=== PATIENT | female | born 1935 | race African-American/Black ===

== ENCOUNTER 2020-01-30 15:59 | Inpatient (IN) | payer MEDICARE, MEDICAID ==
[~2020-01-30] VITALS: Ht 162.6 cm; Wt 85.7 kg
[2020-01-30] MEDS ORDERED: ACETAMINOPHEN 325MG TABLET PO STA (17:18)
[2020-01-30 17:41] LABS: CHLORIDE 108 mEq/L (98-107)
[2020-01-30 17:45] LABS: INR 3.4
[2020-01-30 17:50] LABS: BASOPHILS % 0.5 % (0.0-2.0); EOSINOPHILS % 1.4 % (0.0-5.0); HEMOGLOBIN. 9.6 g/dL (12.0-16.0); LYMPHOCYTES % 10.5 % (20.0-50.0); MEAN CORPUSCULAR HEMOGLOBIN 25.2 pg (28.0-32.0); MEAN PLATELET VOLUME 7.6 fl (7.4-10.4); MONOCYTES % 8.8 % (2.0-8.0); NEUTROPHILS % 78.8 % (40.0-76.0); PLATELET 304 x1000/uL (130-400); RED CELL DISTRIBUTION WIDTH 15.5 % (11.6-14.6)
[2020-01-30] MEDS ORDERED: ONDANSETRON HCL 4MG/2ML INJ IV PRN (19:30)
[2020-01-30] MEDS ORDERED: FUROSEMIDE 20MG/2ML VIAL IVP NR (19:30)
[2020-01-30] MEDS ORDERED: CEFTRIAXONE 1 G PREMIX 50 ML IV SCH (19:45)
[2020-01-30] MEDS: AMLODIPINE 10MG TABLET PO SCH (20:39)
[2020-01-30] MEDS: AZITHROMYCIN 500 MG TABLET PO SCH (20:40)
[2020-01-30] MEDS: SODIUM BICARBONATE 50 MEQ in SODIUM CHLORIDE 0.45% 1,000 ML IV SCH (21:46)
[2020-01-31 05:03] LABS: PHOSPHORUS 4.8 mg/dL (2.5-4.9)
[2020-01-31 05:54] LABS: BASOPHILS % 0.5 % (0.0-2.0); EOSINOPHILS % 1.9 % (0.0-5.0); HEMATOCRIT. 30.5 % (36.0-48.0); LYMPHOCYTES % 12.9 % (20.0-50.0); MEAN CORPUSCULAR HEMOGLOBIN 25.5 pg (28.0-32.0); MEAN PLATELET VOLUME 7.5 fl (7.4-10.4); MONOCYTES % 8.6 % (2.0-8.0); NEUTROPHILS % 76.1 % (40.0-76.0); PLATELET 361 x1000/uL (130-400); RED BLOOD CELL COUNT 3.91 mill/uL (4.2-5.4); RED CELL DISTRIBUTION WIDTH 15.5 % (11.6-14.6)
[2020-01-31 07:02] LABS: INR 3.3; PROTHROMBIN TIME 33.1 sec (9.6-11.0)
[2020-01-31] MEDS ORDERED: AMLODIPINE 5MG TABLET ONE (09:17)
[2020-01-31] MEDS ORDERED: AZITHROMYCIN 500 MG TABLET ONE (09:18)
[2020-01-31] MEDS: AZITHROMYCIN 500 MG TABLET PO SCH (09:21)
[2020-01-31] MEDS: AMLODIPINE 10MG TABLET PO SCH (09:21)
[2020-01-31 13:06] LABS: HEPATITIS B SURFACE AB 7.5 mIU/mL
[2020-01-31 13:16] LABS: HEPATITIS B SURFACE ANTIGEN NEGATIVE
[2020-01-31 15:41] VITALS: BP 117/94
[2020-01-31 17:55] VITALS: BP 145/85
[2020-01-31 20:00] VITALS: BP 119/83
[2020-01-31 22:00] VITALS: BP 112/38
[2020-02-01] VITALS (12 sets, daily range): BP systolic 114–160; BP diastolic 50–87
[2020-02-01] MEDS ORDERED: DEXTROSE 50% WATER 50ML SYRINGE IV PRN (00:15)
[2020-02-01] MEDS: CEFTRIAXONE 1,000 MG in DEXTROSE 5% WATER 50 ML IV SCH ×2 (03:09→20:57)
[2020-02-01] MEDS: BLOOD SUGAR DIAGNOSTIC STRIP TEST SCH ×4 (05:59→21:09)
[2020-02-01 06:38] LABS: BASOPHILS % 0.6 % (0.0-2.0); EOSINOPHILS % 0.9 % (0.0-5.0); HEMATOCRIT. 24.4 % (36.0-48.0); HEMOGLOBIN. 8.1 g/dL (12.0-16.0); LYMPHOCYTES % 10.6 % (20.0-50.0); MEAN CORPUSCULAR HEMOGLOBIN 25.5 pg (28.0-32.0); MEAN PLATELET VOLUME 7.2 fl (7.4-10.4); MONOCYTES % 9.3 % (2.0-8.0); NEUTROPHILS % 78.6 % (40.0-76.0); PLATELET 334 x1000/uL (130-400); RED BLOOD CELL COUNT 3.17 mill/uL (4.2-5.4); RED CELL DISTRIBUTION WIDTH 15.2 % (11.6-14.6)
[2020-02-01 06:46] LABS: INR 3.2; PROTHROMBIN TIME 31.8 sec (9.6-11.0)
[2020-02-01] MEDS: INSULIN LISPRO 100 UNITS/ML SUBCUT SCH ×4 (07:20→21:25)
[2020-02-01 08:09] LABS: *CREATININE RANDOM URINE 102.1 mg/dL (Not Estab.); MICROALBUMIN RANDOM URINE 286.8 ug/mL (Not Estab.)
[2020-02-01] MEDS: AMLODIPINE 10MG TABLET PO SCH (08:20)
[2020-02-01] MEDS: AZITHROMYCIN 500 MG TABLET PO SCH (08:22)
[2020-02-01] MEDS: ACETAMINOPHEN 325MG TABLET PO PRN (08:55)
[2020-02-01 17:38] LABS: CLARITY URINE CLEAR (CLEAR); COLOR URINE YELLOW (YELLOW); KETONES URINE NEGATIVE (NEGATIVE); LEUKOCYTE ESTERASE URINE NEGATIVE (NEGATIVE); NITRITE URINE NEGATIVE (NEGATIVE); OCCULT BLOOD URINE NEGATIVE (NEGATIVE); PROTEIN URINE 2+ (NEGATIVE); SPECIFIC GRAVITY URINE 1.016 (1.005-1.030); UROBILINOGEN URINE 0.2 E.U./dL (0.2-1.0)
[2020-02-01] MEDS: IRON SUCROSE COMPLEX 100 MG/5 ML ML IV SCH (17:56)
[2020-02-01] MEDS: SODIUM BICARBONATE 50 MEQ in SODIUM CHLORIDE 0.45% 1,000 ML IV SCH (22:01)
[2020-02-02] VITALS (13 sets, daily range): BP systolic 125–176; BP diastolic 49–75
[2020-02-02] MEDS: BLOOD SUGAR DIAGNOSTIC STRIP TEST SCH ×4 (05:57→20:19)
[2020-02-02 06:44] LABS: INR 3.2; PROTHROMBIN TIME 31.4 sec (9.6-11.0)
[2020-02-02 07:08] LABS: BASOPHILS % 0.8 % (0.0-2.0); HEMATOCRIT. 26.7 % (36.0-48.0); HEMOGLOBIN. 8.8 g/dL (12.0-16.0); LYMPHOCYTES % 13.5 % (20.0-50.0); MEAN CORPUSCULAR HEMOGLOBIN 25.8 pg (28.0-32.0); MEAN CORPUSCULAR VOLUME 78.2 fL (81.0-99.0); MEAN PLATELET VOLUME 7.2 fl (7.4-10.4); MONOCYTES % 8.7 % (2.0-8.0); PLATELET 331 x1000/uL (130-400); RED BLOOD CELL COUNT 3.42 mill/uL (4.2-5.4)
[2020-02-02] MEDS: INSULIN LISPRO 100 UNITS/ML SUBCUT SCH ×4 (07:20→21:06)
[2020-02-02] MEDS: AMLODIPINE 10MG TABLET PO SCH (09:05)
[2020-02-02] MEDS: AZITHROMYCIN 500 MG TABLET PO SCH (09:06)
[2020-02-02] MEDS: CALCIUM ACETATE 667MG CAPSULE PO SCH ×2 (11:42→17:06)
[2020-02-02] MEDS: IRON SUCROSE COMPLEX 100 MG/5 ML ML IV SCH (17:06)
[2020-02-02] MEDS: ACETAMINOPHEN 325MG TABLET PO PRN (20:12)
[2020-02-02] MEDS: CEFTRIAXONE 1,000 MG in DEXTROSE 5% WATER 50 ML IV SCH (20:19)
[2020-02-02] MEDS ORDERED: EPOETIN ALFA 10000UNITS/ML VIAL SUBCUT SCH (21:00)
[2020-02-02] MEDS: SODIUM BICARBONATE 50 MEQ in SODIUM CHLORIDE 0.45% 1,000 ML IV SCH (21:05)
[2020-02-03] VITALS (12 sets, daily range): BP systolic 138–168; BP diastolic 48–97
[2020-02-03] MEDS: BLOOD SUGAR DIAGNOSTIC STRIP TEST SCH ×4 (06:50→21:00)
[2020-02-03 07:14] LABS: BASOPHILS % 0.5 % (0.0-2.0); EOSINOPHILS % 1.4 % (0.0-5.0); HEMATOCRIT. 25.5 % (36.0-48.0); HEMOGLOBIN. 8.5 g/dL (12.0-16.0); LYMPHOCYTES % 11.1 % (20.0-50.0); MEAN CORPUSCULAR HEMOGLOBIN 25.9 pg (28.0-32.0); MEAN CORPUSCULAR VOLUME 77.9 fL (81.0-99.0); MEAN PLATELET VOLUME 6.9 fl (7.4-10.4); PLATELET 350 x1000/uL (130-400); RED BLOOD CELL COUNT 3.28 mill/uL (4.2-5.4)
[2020-02-03] MEDS: INSULIN LISPRO 100 UNITS/ML SUBCUT SCH ×4 (07:20→21:44)
[2020-02-03 07:21] LABS: INR 2.6; PROTHROMBIN TIME 25.9 sec (9.6-11.0)
[2020-02-03] MEDS: AMLODIPINE 10MG TABLET PO SCH (08:09)
[2020-02-03] MEDS: CALCIUM ACETATE 667MG CAPSULE PO SCH ×3 (08:09→17:43)
[2020-02-03] MEDS: AZITHROMYCIN 500 MG TABLET PO SCH (08:10)
[2020-02-03] MEDS: SODIUM BICARBONATE 50 MEQ in SODIUM CHLORIDE 0.45% 1,000 ML IV SCH (09:30)
[2020-02-03] MEDS: IRON SUCROSE COMPLEX 100 MG/5 ML ML IV SCH (17:43)
[2020-02-03] MEDS: CEFTRIAXONE 1,000 MG in DEXTROSE 5% WATER 50 ML IV SCH (21:44)
[2020-02-03] MEDS: ACETAMINOPHEN 325MG TABLET PO PRN (21:45)
[2020-02-03] MEDS: CLONIDINE 0.2MG TABLET PO PRN (23:57)
[2020-02-04] VITALS (12 sets, daily range): BP systolic 140–185; BP diastolic 47–93
[2020-02-04 06:44] LABS: BASOPHILS % 0.5 % (0.0-2.0); EOSINOPHILS % 2.3 % (0.0-5.0); HEMATOCRIT. 25.4 % (36.0-48.0); HEMOGLOBIN. 8.3 g/dL (12.0-16.0); MEAN CORPUSCULAR HEMOGLOBIN 25.7 pg (28.0-32.0); MEAN CORPUSCULAR VOLUME 78.1 fL (81.0-99.0); MEAN PLATELET VOLUME 6.6 fl (7.4-10.4); MONOCYTES % 8.6 % (2.0-8.0); NEUTROPHILS % 74.6 % (40.0-76.0); PLATELET 358 x1000/uL (130-400); RED BLOOD CELL COUNT 3.25 mill/uL (4.2-5.4); RED CELL DISTRIBUTION WIDTH 15.2 % (11.6-14.6)
[2020-02-04 06:49] LABS: PROTHROMBIN TIME 20.7 sec (9.6-11.0)
[2020-02-04] MEDS: BLOOD SUGAR DIAGNOSTIC STRIP TEST SCH ×3 (06:50→17:14)
[2020-02-04] MEDS: INSULIN LISPRO 100 UNITS/ML SUBCUT SCH ×2 (07:20→12:10)
[2020-02-04] MEDS: CALCIUM ACETATE 667MG CAPSULE PO SCH ×3 (08:40→17:11)
[2020-02-04] MEDS: AMLODIPINE 10MG TABLET PO SCH (08:40)
[2020-02-04] MEDS ORDERED: TRAM50TA3 PO (14:12)
[2020-02-04] MEDS ORDERED: CALC667C PO (14:13)
[2020-02-04] MEDS: CLONIDINE 0.2MG TABLET PO PRN (17:11)
[2020-02-04] MEDS ORDERED: WARFARIN SODIUM 4MG TABLET PO SCH (18:00)
[2020-02-04] MEDS ORDERED: EPOETIN ALFA 4000UNITS/ML VIAL SUBCUT SCH (21:00)
== END 2020-02-04 17:50 | disposition home health service (06) | DRG 871 ==
LOC: ER 15:59 → EDBEDREQ 17:53 → EDBEDREQTM 17:53 → EDBEDREQ 17:54 → MICUSO 21:54 → 3WST 01-31 15:39
PROVIDERS: ADMIT Internal Medicine; ATTEND Internal Medicine
DX: A41.9 Sepsis, unspecified organism (principal); E43 Unspecified severe protein-calorie malnutrition; G82.50 Quadriplegia, unspecified; G93.41 Metabolic encephalopathy; N17.9 Acute kidney failure, unspecified; N18.4 Chronic kidney disease, stage 4 (severe); E87.1 Hypo-osmolality and hyponatremia; D68.9 Coagulation defect, unspecified; I69.354 Hemiplegia and hemiparesis following cerebral infarction affecting left non-dominant side; N25.81 Secondary hyperparathyroidism of renal origin; R47.01 Aphasia; M10.9 Gout, unspecified; E87.8 Other disorders of electrolyte and fluid balance, not elsewhere classified; M19.90 Unspecified osteoarthritis, unspecified site; E78.5 Hyperlipidemia, unspecified; E66.9 Obesity, unspecified; Z85.038 Personal history of other malignant neoplasm of large intestine; Z20.828 Contact with and (suspected) exposure to other viral communicable diseases; M21.222 Flexion deformity, left elbow; D50.9 Iron deficiency anemia, unspecified; E11.22 Type 2 diabetes mellitus with diabetic chronic kidney disease; I12.9 Hypertensive chronic kidney disease with stage 1 through stage 4 chronic kidney disease, or unspecified chronic kidney disease; K43.2 Incisional hernia without obstruction or gangrene; Z68.32 Body mass index [BMI] 32.0-32.9, adult; Z90.49 Acquired absence of other specified parts of digestive tract; Z79.01 Long term (current) use of anticoagulants; I69.322 Dysarthria following cerebral infarction; Z74.01 Bed confinement status; D63.8 Anemia in other chronic diseases classified elsewhere
CPT/HCPCS: 36415; 71045; 73560; 73600; 80048; 80053; 81003; 82043; 82570; 82575; 82728; 82962; 83036; 83540; 83550; 83735; 83970; 84100; 84156; 85025; 86705; 86706; 86803; 87340; 93005; 97162; 97166; 99285; J0696; J0885; J1815; J1940; J3490; J7060; U0003-CS

== ENCOUNTER 2021-06-07 18:17 | Emergency (ER) | payer MEDICARE, MEDICAID ==
[~2021-06-07] VITALS: Ht 162.6 cm; Wt 68.0 kg
[~2021-06-07 18:17] MED LIST: CALC667C PO; TRAM50TA3 PO
[2021-06-07] MEDS ORDERED: METHYLPREDNISOLONE SOD SUCC 125 MG/2 ML VIAL IV STA (19:17)
[2021-06-07] MEDS ORDERED: IPRATROPIUM BROMIDE (0.02%) 0.5MG/2.5ML NEB HHN STA (19:17)
[2021-06-07] MEDS ORDERED: ASPIRIN 81MG TABLET PO ONE (19:30)
[2021-06-07 20:12] LABS: BASOPHILS % 0.6 % (0.0-2.0); EOSINOPHILS % 2.3 % (0.0-5.0); HEMATOCRIT. 29.6 % (36.0-48.0); HEMOGLOBIN. 9.5 g/dL (12.0-16.0); MEAN CORPUSCULAR HEMOGLOBIN 25.1 pg (28.0-32.0); MEAN CORPUSCULAR VOLUME 78.1 fL (81.0-99.0); MEAN PLATELET VOLUME 7.7 fl (7.4-10.4); MONOCYTES % 7.5 % (2.0-8.0); NEUTROPHILS % 76.6 % (40.0-76.0); PLATELET 251 x1000/uL (130-400); RED BLOOD CELL COUNT 3.79 mill/uL (4.2-5.4); RED CELL DISTRIBUTION WIDTH 15.7 % (11.6-14.6)
[2021-06-07 20:19] LABS: CHLORIDE 116 mEq/L (98-107)
[2021-06-07] MEDS: ALBUTEROL (0.083%) 2.5MG/3ML NEB HHN SCH ×3 (22:00→22:40)
[2021-06-08 00:03] VITALS: BP 160/75
== END 2021-06-08 00:10 | disposition home or self-care (01) ==
LOC: ER 18:17 → CANBEDREQ 06-08 01:43
DX: J45.901 Unspecified asthma with (acute) exacerbation (principal); E11.22 Type 2 diabetes mellitus with diabetic chronic kidney disease; I12.9 Hypertensive chronic kidney disease with stage 1 through stage 4 chronic kidney disease, or unspecified chronic kidney disease; N18.9 Chronic kidney disease, unspecified; I69.354 Hemiplegia and hemiparesis following cerebral infarction affecting left non-dominant side
CPT/HCPCS: 36415; 71045; 80053; 83880; 84484; 85025; 87426; 93005; 96374; 99285; J2930

== ENCOUNTER 2021-07-23 13:56 | Inpatient (IN) | payer MEDICARE, MEDICAID ==
[~2021-07-23] VITALS: Ht 157.5 cm; Wt 85.7 kg
[2021-07-23] MEDS ORDERED: [UNRECOGNIZED DRUG - OTHER] (14:09)
[2021-07-23] MEDS ORDERED: WARF2.5T83 PO (14:09)
[2021-07-23] MEDS ORDERED: LANTUS (14:09)
[2021-07-23] MEDS ORDERED: METO-385 PO (14:09)
[2021-07-23] MEDS ORDERED: HYDR-4135 PO (14:09)
[2021-07-23] MEDS ORDERED: AMLO10TA80 PO (14:09)
[2021-07-23] MEDS ORDERED: SITA50TA3 PO (14:09)
[2021-07-23] MEDS ORDERED: PREVASTATIN (14:09)
[2021-07-23] MEDS ORDERED: LOSA100T32 PO (14:09)
[2021-07-23] MEDS ORDERED: FURO20TA4 PO (14:09)
[2021-07-23 16:13] LABS: BASOPHILS % 0.7 % (0.0-2.0); EOSINOPHILS % 4.4 % (0.0-5.0); MEAN CORPUSCULAR HEMOGLOBIN 25.4 pg (28.0-32.0); MEAN PLATELET VOLUME 7.6 fl (7.4-10.4); MONOCYTES % 9.8 % (2.0-8.0); NEUTROPHILS % 69.1 % (40.0-76.0); PLATELET 277 x1000/uL (130-400); RED BLOOD CELL COUNT 2.61 mill/uL (4.2-5.4); RED CELL DISTRIBUTION WIDTH 17.2 % (11.6-14.6)
[2021-07-23 16:17] LABS: HEMOGLOBIN. 6.6 g/dL (12.0-16.0)
[2021-07-23 16:18] LABS: HEMATOCRIT. 20.3 % (36.0-48.0)
[2021-07-23 16:19] LABS: CHLORIDE 109 mEq/L (98-107)
[2021-07-23 16:26] LABS: INR 3.4; PROTHROMBIN TIME 32.9 sec (9.6-11.0)
[2021-07-23] MEDS ORDERED: DOCUSATE SODIUM 100MG CAPSULE PO PRN (19:15)
[2021-07-23] MEDS ORDERED: ONDANSETRON HCL 4MG/2ML INJ IV PRN (19:15)
[2021-07-23] MEDS ORDERED: ENOXAPARIN 40MG/0.4ML SYR SUBCUT SCH (19:15)
[2021-07-23] MEDS ORDERED: METOPROLOL TARTRATE 50MG TABLET PO NR (19:15)
[2021-07-23] MEDS ORDERED: CLONIDINE 0.1MG TABLET PO PRN (19:15)
[2021-07-23 20:28] LABS: TOTAL IRON BINDING CAPACITY 303 ug/dL (250-450)
[2021-07-23] MEDS: ATORVASTATIN CALCIUM 40MG TABLET PO SCH (21:00)
[2021-07-23] MEDS: HYDRALAZINE HCL 50MG TABLET PO SCH (22:00)
[2021-07-24] MEDS: HYDRALAZINE HCL 50MG TABLET PO SCH ×3 (06:00→21:29)
[2021-07-24 06:56] LABS: HEMOGLOBIN. 7.5 g/dL (12.0-16.0); MEAN CORPUSCULAR HEMOGLOBIN 26.1 pg (28.0-32.0); MEAN CORPUSCULAR VOLUME 80.1 fL (81.0-99.0); MEAN PLATELET VOLUME 7.5 fl (7.4-10.4); PLATELET 225 x1000/uL (130-400); RED BLOOD CELL COUNT 2.87 mill/uL (4.2-5.4); RED CELL DISTRIBUTION WIDTH 17.2 % (11.6-14.6)
[2021-07-24 07:07] LABS: PHOSPHORUS 4.5 mg/dL (2.5-4.9)
[2021-07-24 08:03] LABS: HEPATITIS B SURFACE ANTIGEN NEGATIVE
[2021-07-24] MEDS: IPRATROPIUM/ALBUTEROL 0.5-3(2.5)MG/3ML NEB NEB PRN ×2 (08:15→20:27)
[2021-07-24 08:28] LABS: NUCLEATED RED BLOOD CELLS 1 /100 WBC; PLATELET ESTIMATE NORMAL
[2021-07-24] MEDS: CALCIUM ACETATE 667MG CAPSULE PO SCH ×2 (09:00→13:33)
[2021-07-24] MEDS: LOSARTAN POTASSIUM 50 MG TABLET PO SCH (09:00)
[2021-07-24] MEDS: FUROSEMIDE 40MG TABLET PO SCH (09:00)
[2021-07-24] MEDS: AMLODIPINE 10MG TABLET PO SCH (09:00)
[2021-07-24] MEDS ORDERED: SODIUM CHLORIDE 0.9% 1,000 ML IV ONE (11:15)
[2021-07-24] MEDS: IRON SUCROSE COMPLEX 100 MG/5 ML ML IV SCH (13:34)
[2021-07-24 18:00] VITALS: BP 146/52
[2021-07-24 18:42] LABS: BG BASE EXCESS -6.2 mmol/L (-2.0-2.0); BG CARBOXYHEMOGLOBIN 0.3 % (0.5-1.5); BG DEOXYHEMOGLOBIN 13.2 % (0.0-5.0); BG FRACTION INSPIRED OXYGEN 36; BG METHEMOGLOBIN 0.3 % (0.0-1.5); BG OXYGEN SATURATION 86.7 % (92.0-98.5); BG OXYHEMOGLOBIN 86.2 % (94.0-97.0); BG PCO2 36.2 mmHg (35.0-45.0); BG PH 7.337 (7.350-7.450); BG PO2 55.8 mmHg (75.0-100.0); BG SAMPLE SITE RIGHT RADIAL; BG TOTAL HEMOGLOBIN 8.5 g/dL (12.0-18.0); BG VENT MODE NASAL CANNULA
[2021-07-24] MEDS: IPRATROPIUM/ALBUTEROL 0.5-3(2.5)MG/3ML NEB HHN SCH (18:48)
[2021-07-24 20:00] VITALS: BP 145/60
[2021-07-24] MEDS: ATORVASTATIN CALCIUM 40MG TABLET PO SCH (21:29)
[2021-07-24 22:24] LABS: PROTHROMBIN TIME 40.3 sec (9.6-11.0)
[2021-07-24 22:42] LABS: INR 4.2
[2021-07-25] VITALS (7 sets, daily range): BP systolic 116–143; BP diastolic 47–70
[2021-07-25] MEDS ORDERED: PHYTONADIONE 10MG/ML AMP IM SCH (00:15)
[2021-07-25] MEDS: IPRATROPIUM/ALBUTEROL 0.5-3(2.5)MG/3ML NEB HHN SCH ×5 (01:01→21:14)
[2021-07-25] MEDS: METHYLPREDNISOLONE SOD SUCC 40 MG/ML VIAL IV SCH ×3 (02:32→17:53)
[2021-07-25] MEDS: CALCIUM ACETATE 667MG CAPSULE PO SCH ×3 (06:07→17:53)
[2021-07-25] MEDS: HYDRALAZINE HCL 50MG TABLET PO SCH ×3 (06:07→21:36)
[2021-07-25 08:13] LABS: HEMATOCRIT. 23.6 % (36.0-48.0); HEMOGLOBIN. 7.7 g/dL (12.0-16.0); MEAN CORPUSCULAR HEMOGLOBIN 26.4 pg (28.0-32.0); MEAN CORPUSCULAR VOLUME 80.4 fL (81.0-99.0); MEAN PLATELET VOLUME 7.7 fl (7.4-10.4); PLATELET 236 x1000/uL (130-400); RED BLOOD CELL COUNT 2.93 mill/uL (4.2-5.4); RED CELL DISTRIBUTION WIDTH 17.2 % (11.6-14.6)
[2021-07-25 08:18] LABS: PROTHROMBIN TIME 43.3 sec (9.6-11.0)
[2021-07-25] MEDS: FUROSEMIDE 40MG TABLET PO SCH (09:26)
[2021-07-25] MEDS: AMLODIPINE 10MG TABLET PO SCH (09:26)
[2021-07-25] MEDS: LOSARTAN POTASSIUM 50 MG TABLET PO SCH (09:27)
[2021-07-25] MEDS ORDERED: DILTIAZEM HCL 5MG/ML 5ML VIAL IV SCH (10:00)
[2021-07-25 10:12] LABS: INR 4.5
[2021-07-25] MEDS ORDERED: PHYTONADIONE 10MG/ML AMP SUBCUT SCH (11:00)
[2021-07-25] MEDS: IRON SUCROSE COMPLEX 100 MG/5 ML ML IV SCH (11:25)
[2021-07-25] MEDS: SODIUM CHLORIDE 0.9% 1,000 ML IV SCH (12:48)
[2021-07-25] MEDS: DILTIAZEM HCL 5MG/ML 5ML VIAL IV PRN ×2 (13:32→22:02)
[2021-07-25] MEDS: ATORVASTATIN CALCIUM 40MG TABLET PO SCH (21:36)
[2021-07-25] MEDS: EPOETIN ALFA-EPBX 4,000 UNIT/ML VIAL SUBCUT SCH (21:36)
[2021-07-26] VITALS: BP 143/95
[2021-07-26] MEDS: IPRATROPIUM/ALBUTEROL 0.5-3(2.5)MG/3ML NEB HHN SCH ×6 (00:48→20:58)
[2021-07-26] MEDS: METHYLPREDNISOLONE SOD SUCC 40 MG/ML VIAL IV SCH ×3 (02:08→17:24)
[2021-07-26 04:00] VITALS: BP 122/51
[2021-07-26] MEDS: HYDRALAZINE HCL 50MG TABLET PO SCH ×3 (06:00→21:23)
[2021-07-26] MEDS: DILTIAZEM HCL 5MG/ML 5ML VIAL IV PRN ×2 (06:26→14:22)
[2021-07-26 08:16] LABS: INR 2.9; PROTHROMBIN TIME 28.7 sec (9.6-11.0)
[2021-07-26 08:17] VITALS: BP 119/65
[2021-07-26] MEDS: CALCIUM ACETATE 667MG CAPSULE PO SCH ×3 (08:59→17:24)
[2021-07-26] MEDS: LOSARTAN POTASSIUM 50 MG TABLET PO SCH (08:59)
[2021-07-26] MEDS: FUROSEMIDE 40MG TABLET PO SCH (08:59)
[2021-07-26] MEDS: SODIUM CHLORIDE 0.9% 1,000 ML IV SCH (09:00)
[2021-07-26] MEDS: DILTIAZEM HCL 60MG TABLET PO SCH ×3 (10:11→21:23)
[2021-07-26] MEDS: IRON SUCROSE COMPLEX 100 MG/5 ML ML IV SCH (10:11)
[2021-07-26 10:18] LABS: MEAN CORPUSCULAR HEMOGLOBIN 25.6 pg (28.0-32.0); MEAN CORPUSCULAR VOLUME 80.1 fL (81.0-99.0); MEAN PLATELET VOLUME 7.9 fl (7.4-10.4); PLATELET 216 x1000/uL (130-400); RED BLOOD CELL COUNT 2.73 mill/uL (4.2-5.4); RED CELL DISTRIBUTION WIDTH 17.2 % (11.6-14.6)
[2021-07-26 10:24] LABS: HEMATOCRIT. 21.9 % (36.0-48.0)
[2021-07-26 13:35] VITALS: BP 134/74
[2021-07-26] MEDS ORDERED: PHYTONADIONE 10MG/ML AMP SUBCUT NR (14:00)
[2021-07-26 15:48] VITALS: BP 133/68
[2021-07-26 16:14] LABS: PLATELET ESTIMATE NORMAL
[2021-07-26 17:39] LABS: PLATELET ESTIMATE NORMAL
[2021-07-26 20:00] VITALS: BP 167/58
[2021-07-26] MEDS: ATORVASTATIN CALCIUM 40MG TABLET PO SCH (21:23)
[2021-07-27] VITALS (9 sets, daily range): BP systolic 90–151; BP diastolic 44–103
[2021-07-27] MEDS: IPRATROPIUM/ALBUTEROL 0.5-3(2.5)MG/3ML NEB HHN SCH ×4 (00:45→20:10)
[2021-07-27] MEDS: METHYLPREDNISOLONE SOD SUCC 40 MG/ML VIAL IV SCH ×3 (01:15→18:21)
[2021-07-27] MEDS: DILTIAZEM HCL 5MG/ML 5ML VIAL IV PRN (01:15)
[2021-07-27] MEDS: HYDRALAZINE HCL 50MG TABLET PO SCH ×3 (06:00→21:36)
[2021-07-27 06:33] LABS: INR 1.5; PROTHROMBIN TIME 15.7 sec (9.6-11.0)
[2021-07-27] MEDS: DILTIAZEM HCL 60MG TABLET PO SCH ×3 (06:35→21:36)
[2021-07-27] MEDS: CALCIUM ACETATE 667MG CAPSULE PO SCH ×3 (07:40→18:21)
[2021-07-27 07:53] LABS: MEAN CORPUSCULAR HEMOGLOBIN 25.5 pg (28.0-32.0); MEAN CORPUSCULAR VOLUME 79.6 fL (81.0-99.0); PLATELET 210 x1000/uL (130-400); RED BLOOD CELL COUNT 2.53 mill/uL (4.2-5.4); RED CELL DISTRIBUTION WIDTH 17.3 % (11.6-14.6)
[2021-07-27 08:15] LABS: HEMOGLOBIN. 6.4 g/dL (12.0-16.0)
[2021-07-27 08:16] LABS: HEMATOCRIT. 20.1 % (36.0-48.0)
[2021-07-27] MEDS ORDERED: LIDOCAINE HCL 1% 20ML VIAL (Pyxis) INJ ONE (09:26)
[2021-07-27] MEDS ORDERED: HEPARIN 1000 UNITS/ML 10ML ONE (09:26)
[2021-07-27] MEDS: IRON SUCROSE COMPLEX 100 MG/5 ML ML IV SCH (11:30)
[2021-07-27 18:35] LABS: NUCLEATED RED BLOOD CELLS 2 /100 WBC; PLATELET ESTIMATE NORMAL
[2021-07-27] MEDS: ATORVASTATIN CALCIUM 40MG TABLET PO SCH (21:36)
[2021-07-28] VITALS: BP 151/54
[2021-07-28] MEDS: IPRATROPIUM/ALBUTEROL 0.5-3(2.5)MG/3ML NEB HHN SCH ×6 (00:32→21:55)
[2021-07-28] MEDS: METHYLPREDNISOLONE SOD SUCC 40 MG/ML VIAL IV SCH ×3 (01:08→16:44)
[2021-07-28] MEDS: DILTIAZEM HCL 5MG/ML 5ML VIAL IV PRN (01:12)
[2021-07-28 04:00] VITALS: BP 153/60
[2021-07-28] MEDS: DILTIAZEM HCL 60MG TABLET PO SCH (05:53)
[2021-07-28] MEDS: HYDRALAZINE HCL 50MG TABLET PO SCH ×3 (06:26→20:52)
[2021-07-28 08:00] VITALS: BP 155/68
[2021-07-28] MEDS: CALCIUM ACETATE 667MG CAPSULE PO SCH ×3 (09:05→16:44)
[2021-07-28 11:04] LABS: HEMATOCRIT. 25.1 % (36.0-48.0); HEMOGLOBIN. 8.2 g/dL (12.0-16.0); MEAN CORPUSCULAR HEMOGLOBIN 26.3 pg (28.0-32.0); MEAN CORPUSCULAR VOLUME 80.6 fL (81.0-99.0); MEAN PLATELET VOLUME 8.1 fl (7.4-10.4); PLATELET 222 x1000/uL (130-400); RED BLOOD CELL COUNT 3.11 mill/uL (4.2-5.4); RED CELL DISTRIBUTION WIDTH 16.9 % (11.6-14.6)
[2021-07-28 12:00] VITALS: BP 126/72
[2021-07-28] MEDS: IRON SUCROSE COMPLEX 100 MG/5 ML ML IV SCH (13:29)
[2021-07-28] MEDS: DILTIAZEM HCL 90MG TABLET PO SCH ×2 (13:29→20:53)
[2021-07-28 16:00] VITALS: BP 156/57
[2021-07-28] MEDS: PANTOPRAZOLE SODIUM 40 MG/VIAL IV SCH (16:44)
[2021-07-28 17:08] LABS: PLATELET ESTIMATE NORMAL
[2021-07-28 17:58] LABS: FOLIC ACID (FOLATE) SERUM 10.2 ng/mL (>5.38)
[2021-07-28 20:00] VITALS: BP 183/69
[2021-07-28] MEDS: ATORVASTATIN CALCIUM 40MG TABLET PO SCH (20:52)
[2021-07-28] MEDS: EPOETIN ALFA-EPBX 4,000 UNIT/ML VIAL SUBCUT SCH (20:53)
[2021-07-29] VITALS: BP 133/61
[2021-07-29] MEDS: IPRATROPIUM/ALBUTEROL 0.5-3(2.5)MG/3ML NEB HHN SCH ×6 (01:07→20:58)
[2021-07-29] MEDS: METHYLPREDNISOLONE SOD SUCC 40 MG/ML VIAL IV SCH ×3 (02:35→17:09)
[2021-07-29 04:00] VITALS: BP 130/76
[2021-07-29] MEDS: HYDRALAZINE HCL 50MG TABLET PO SCH ×3 (06:35→20:41)
[2021-07-29] MEDS: DILTIAZEM HCL 90MG TABLET PO SCH ×3 (06:35→20:46)
[2021-07-29 08:00] VITALS: BP 131/45
[2021-07-29 08:53] LABS: HEMATOCRIT. 27.6 % (36.0-48.0); HEMOGLOBIN. 9.3 g/dL (12.0-16.0); MEAN CORPUSCULAR HEMOGLOBIN 26.8 pg (28.0-32.0); MEAN CORPUSCULAR VOLUME 79.4 fL (81.0-99.0); MEAN PLATELET VOLUME 8.1 fl (7.4-10.4); PLATELET 204 x1000/uL (130-400); RED BLOOD CELL COUNT 3.47 mill/uL (4.2-5.4); RED CELL DISTRIBUTION WIDTH 17.1 % (11.6-14.6)
[2021-07-29] MEDS: PANTOPRAZOLE SODIUM 40 MG/VIAL IV SCH ×2 (09:08→17:09)
[2021-07-29] MEDS: CALCIUM ACETATE 667MG CAPSULE PO SCH ×3 (09:08→17:09)
[2021-07-29 10:35] LABS: INR 1.1; PROTHROMBIN TIME 11.9 sec (9.6-11.0)
[2021-07-29] MEDS: IRON SUCROSE COMPLEX 100 MG/5 ML ML IV SCH (11:30)
[2021-07-29 12:00] VITALS: BP 151/62
[2021-07-29] MEDS: METOPROLOL TARTRATE 50MG TABLET PO SCH ×2 (13:10→20:41)
[2021-07-29 16:00] VITALS: BP 113/49
[2021-07-29 18:24] LABS: PLATELET ESTIMATE NORMAL
[2021-07-29 20:00] VITALS: BP 144/57
[2021-07-29] MEDS: ATORVASTATIN CALCIUM 40MG TABLET PO SCH (20:41)
[2021-07-29] MEDS ORDERED: METOPROLOL TARTRATE 25MG TABLET PO SCH (21:00)
[2021-07-30] VITALS: BP 136/80
[2021-07-30] MEDS: METHYLPREDNISOLONE SOD SUCC 40 MG/ML VIAL IV SCH ×3 (01:48→17:27)
[2021-07-30] MEDS: DILTIAZEM HCL 5MG/ML 5ML VIAL IV PRN (01:49)
[2021-07-30] MEDS: IPRATROPIUM/ALBUTEROL 0.5-3(2.5)MG/3ML NEB HHN SCH ×5 (01:56→21:42)
[2021-07-30 04:00] VITALS: BP 120/68
[2021-07-30] MEDS: HYDRALAZINE HCL 50MG TABLET PO SCH ×3 (05:56→21:07)
[2021-07-30] MEDS: DILTIAZEM HCL 90MG TABLET PO SCH ×3 (05:56→21:07)
[2021-07-30 07:28] LABS: HEMATOCRIT. 31.7 % (36.0-48.0); HEMOGLOBIN. 10.7 g/dL (12.0-16.0); MEAN PLATELET VOLUME 8.4 fl (7.4-10.4); PLATELET 210 x1000/uL (130-400); RED BLOOD CELL COUNT 3.96 mill/uL (4.2-5.4); RED CELL DISTRIBUTION WIDTH 17.4 % (11.6-14.6)
[2021-07-30 08:00] VITALS: BP 131/59
[2021-07-30 09:48] LABS: BG BASE EXCESS -3.8 mmol/L (-2.0-2.0); BG CARBOXYHEMOGLOBIN 0.3 % (0.5-1.5); BG DEOXYHEMOGLOBIN 4.2 % (0.0-5.0); BG FRACTION INSPIRED OXYGEN 50; BG HCO3 ACT 20.9 mmol/L (22.0-26.0); BG METHEMOGLOBIN 0.3 % (0.0-1.5); BG OXYGEN SATURATION 95.8 % (92.0-98.5); BG OXYHEMOGLOBIN 95.2 % (94.0-97.0); BG PCO2 36.6 mmHg (35.0-45.0); BG PH 7.374 (7.350-7.450); BG SAMPLE SITE RIGHT RADIAL; BG TOTAL HEMOGLOBIN 11.2 g/dL (12.0-18.0); BG VENT MODE MASK - BIPAP
[2021-07-30] MEDS: METOPROLOL TARTRATE 50MG TABLET PO SCH ×2 (10:23→21:07)
[2021-07-30] MEDS: CALCIUM ACETATE 667MG CAPSULE PO SCH ×3 (10:23→17:27)
[2021-07-30] MEDS: PANTOPRAZOLE SODIUM 40 MG/VIAL IV SCH ×2 (10:23→17:27)
[2021-07-30] MEDS: SODIUM CHLORIDE 0.9% 1,000 ML IV SCH (10:24)
[2021-07-30 12:00] VITALS: BP 121/58
[2021-07-30 14:06] LABS: PLATELET ESTIMATE NORMAL
[2021-07-30 16:00] VITALS: BP 122/48
[2021-07-30 20:00] VITALS: BP 119/64
[2021-07-30] MEDS: ATORVASTATIN CALCIUM 40MG TABLET PO SCH (21:07)
[2021-07-31] VITALS: BP 113/77
[2021-07-31] MEDS: IPRATROPIUM/ALBUTEROL 0.5-3(2.5)MG/3ML NEB HHN SCH ×6 (01:06→20:46)
[2021-07-31] MEDS: METHYLPREDNISOLONE SOD SUCC 40 MG/ML VIAL IV SCH ×3 (02:14→18:20)
[2021-07-31 04:00] VITALS: BP 124/66
[2021-07-31] MEDS: DILTIAZEM HCL 90MG TABLET PO SCH ×3 (06:03→21:38)
[2021-07-31] MEDS: HYDRALAZINE HCL 50MG TABLET PO SCH ×3 (06:03→21:38)
[2021-07-31] MEDS: SODIUM CHLORIDE 0.9% 1,000 ML IV SCH (06:04)
[2021-07-31 08:00] VITALS: BP 137/75
[2021-07-31 08:36] LABS: HEMATOCRIT. 32.3 % (36.0-48.0); HEMOGLOBIN. 10.5 g/dL (12.0-16.0); MEAN CORPUSCULAR HEMOGLOBIN 26.3 pg (28.0-32.0); MEAN CORPUSCULAR VOLUME 80.8 fL (81.0-99.0); MEAN PLATELET VOLUME 8.7 fl (7.4-10.4); PLATELET 181 x1000/uL (130-400); RED BLOOD CELL COUNT 3.99 mill/uL (4.2-5.4); RED CELL DISTRIBUTION WIDTH 17.7 % (11.6-14.6)
[2021-07-31 09:07] LABS: PHOSPHORUS 4.9 mg/dL (2.5-4.9)
[2021-07-31] MEDS: CALCIUM ACETATE 667MG CAPSULE PO SCH ×3 (10:24→18:20)
[2021-07-31] MEDS: METOPROLOL TARTRATE 50MG TABLET PO SCH ×2 (10:25→21:38)
[2021-07-31] MEDS: PANTOPRAZOLE SODIUM 40 MG/VIAL IV SCH ×2 (10:25→18:20)
[2021-07-31 11:40] LABS: NUCLEATED RED BLOOD CELLS 3 /100 WBC
[2021-07-31 11:41] LABS: PLATELET ESTIMATE NORMAL
[2021-07-31 12:00] VITALS: BP 150/69
[2021-07-31 16:00] VITALS: BP 128/71
[2021-07-31 20:00] VITALS: BP 144/64
[2021-07-31 21:00] LABS: HEPATITIS B SURFACE ANTIGEN NEGATIVE
[2021-07-31] MEDS: ATORVASTATIN CALCIUM 40MG TABLET PO SCH (21:38)
[2021-07-31] MEDS: ACETAMINOPHEN 325MG TABLET PO PRN (23:35)
[2021-08-01] VITALS: BP 147/75
[2021-08-01] MEDS: IPRATROPIUM/ALBUTEROL 0.5-3(2.5)MG/3ML NEB HHN SCH ×6 (00:59→21:05)
[2021-08-01] MEDS: METHYLPREDNISOLONE SOD SUCC 40 MG/ML VIAL IV SCH ×3 (01:58→17:44)
[2021-08-01] MEDS: SODIUM CHLORIDE 0.9% 1,000 ML IV SCH ×2 (01:58→20:33)
[2021-08-01 04:00] VITALS: BP 158/94
[2021-08-01] MEDS: DILTIAZEM HCL 90MG TABLET PO SCH ×3 (05:31→20:35)
[2021-08-01] MEDS: HYDRALAZINE HCL 50MG TABLET PO SCH ×3 (05:31→20:34)
[2021-08-01 08:00] VITALS: BP 173/64
[2021-08-01 08:27] LABS: HEMATOCRIT. 31.7 % (36.0-48.0); HEMOGLOBIN. 10.6 g/dL (12.0-16.0); MEAN CORPUSCULAR HEMOGLOBIN 27.1 pg (28.0-32.0); MEAN CORPUSCULAR VOLUME 81.3 fL (81.0-99.0); PLATELET 165 x1000/uL (130-400); RED BLOOD CELL COUNT 3.91 mill/uL (4.2-5.4)
[2021-08-01 08:50] LABS: PHOSPHORUS 4.5 mg/dL (2.5-4.9)
[2021-08-01] MEDS: PANTOPRAZOLE SODIUM 40 MG/VIAL IV SCH ×2 (09:30→17:44)
[2021-08-01] MEDS: CALCIUM ACETATE 667MG CAPSULE PO SCH ×3 (09:30→17:40)
[2021-08-01] MEDS: METOPROLOL TARTRATE 50MG TABLET PO SCH ×2 (09:30→20:36)
[2021-08-01 10:46] LABS: PLATELET ESTIMATE NORMAL
[2021-08-01 12:00] VITALS: BP 117/57
[2021-08-01] MEDS: ACETAMINOPHEN 325MG TABLET PO PRN (13:01)
[2021-08-01] MEDS: DILTIAZEM HCL 5MG/ML 5ML VIAL IV PRN (13:52)
[2021-08-01 16:00] VITALS: BP 149/89
[2021-08-01 20:00] VITALS: BP 148/103
[2021-08-01] MEDS: ATORVASTATIN CALCIUM 40MG TABLET PO SCH (20:33)
[2021-08-02] VITALS: BP 132/78
[2021-08-02] MEDS: METHYLPREDNISOLONE SOD SUCC 40 MG/ML VIAL IV SCH ×3 (01:20→17:49)
[2021-08-02 04:00] VITALS: BP 127/93
[2021-08-02] MEDS: IPRATROPIUM/ALBUTEROL 0.5-3(2.5)MG/3ML NEB HHN SCH ×5 (04:00→17:06)
[2021-08-02] MEDS: HYDRALAZINE HCL 50MG TABLET PO SCH ×3 (05:23→21:52)
[2021-08-02] MEDS: DILTIAZEM HCL 90MG TABLET PO SCH ×3 (05:23→21:52)
[2021-08-02 08:00] VITALS: BP 148/65
[2021-08-02] MEDS: CALCIUM ACETATE 667MG CAPSULE PO SCH ×3 (09:24→17:50)
[2021-08-02] MEDS: METOPROLOL TARTRATE 50MG TABLET PO SCH ×2 (09:24→21:52)
[2021-08-02] MEDS: PANTOPRAZOLE SODIUM 40 MG/VIAL IV SCH ×2 (09:24→17:49)
[2021-08-02 12:00] VITALS: BP 151/90
[2021-08-02] MEDS: ENOXAPARIN 30MG/0.3ML SYR SUBCUT SCH (12:31)
[2021-08-02 12:51] LABS: HEMATOCRIT. 32.6 % (36.0-48.0); HEMOGLOBIN. 10.4 g/dL (12.0-16.0); MEAN CORPUSCULAR VOLUME 81.9 fL (81.0-99.0); PLATELET 116 x1000/uL (130-400); RED BLOOD CELL COUNT 3.98 mill/uL (4.2-5.4); RED CELL DISTRIBUTION WIDTH 18.2 % (11.6-14.6)
[2021-08-02 13:04] LABS: INR 1.1; PROTHROMBIN TIME 11.9 sec (9.6-11.0)
[2021-08-02 13:15] LABS: NUCLEATED RED BLOOD CELLS 1 /100 WBC; PLATELET ESTIMATE SLIGHTLY DECREASED
[2021-08-02 16:00] VITALS: BP 145/90
[2021-08-02] MEDS: SODIUM CHLORIDE 0.9% 1,000 ML IV SCH (17:51)
[2021-08-02 20:00] VITALS: BP 164/71
[2021-08-02] MEDS: ATORVASTATIN CALCIUM 40MG TABLET PO SCH (21:52)
[2021-08-03] VITALS (49 sets, daily range): BP systolic 59–173; BP diastolic 25–118
[2021-08-03] MEDS: METHYLPREDNISOLONE SOD SUCC 40 MG/ML VIAL IV SCH ×3 (04:48→17:46)
[2021-08-03] MEDS: HYDRALAZINE HCL 50MG TABLET PO SCH ×3 (06:20→22:17)
[2021-08-03] MEDS: DILTIAZEM HCL 90MG TABLET PO SCH (06:20)
[2021-08-03] MEDS: IPRATROPIUM/ALBUTEROL 0.5-3(2.5)MG/3ML NEB HHN SCH ×4 (08:30→21:52)
[2021-08-03] MEDS ORDERED: SODIUM POLYSTYRENE SULFONATE 15 G/60 ML BOT PO SCH (10:00)
[2021-08-03] MEDS: PANTOPRAZOLE SODIUM 40 MG/VIAL IV SCH ×2 (10:17→17:46)
[2021-08-03] MEDS: METOPROLOL TARTRATE 50MG TABLET PO SCH ×2 (10:18→20:33)
[2021-08-03] MEDS: CALCIUM ACETATE 667MG CAPSULE PO SCH ×3 (10:18→17:46)
[2021-08-03] MEDS ORDERED: METOPROLOL TARTRATE 50MG TABLET PO NR (11:15)
[2021-08-03] MEDS: DILTIAZEM HCL 125 MG in DEXT 5% WATER 100 ML IV PRN ×2 (13:04→21:32)
[2021-08-03] MEDS ORDERED: DIGOXIN 500MCG/2ML AMP IV NR (19:00)
[2021-08-03] MEDS ORDERED: DEXTROSE 50% WATER 50ML SYRINGE IV PRN (19:30)
[2021-08-03] MEDS: ATORVASTATIN CALCIUM 40MG TABLET PO SCH (20:33)
[2021-08-03] MEDS: DILTIAZEM HCL 5MG/ML 5ML VIAL IV PRN (20:33)
[2021-08-03] MEDS: BLOOD SUGAR DIAGNOSTIC STRIP TEST SCH (20:34)
[2021-08-03] MEDS: INSULIN LISPRO 100 UNITS/ML SUBCUT SCH (20:51)
[2021-08-04] VITALS (34 sets, daily range): BP systolic 125–168; BP diastolic 54–127
[2021-08-04] MEDS: INSULIN LISPRO 100 UNITS/ML SUBCUT SCH ×5 (01:10→23:13)
[2021-08-04] MEDS: METHYLPREDNISOLONE SOD SUCC 40 MG/ML VIAL IV SCH ×2 (02:00→10:55)
[2021-08-04] MEDS: IPRATROPIUM/ALBUTEROL 0.5-3(2.5)MG/3ML NEB HHN SCH ×6 (02:10→21:06)
[2021-08-04] MEDS: HYDRALAZINE HCL 50MG TABLET PO SCH ×3 (05:11→21:05)
[2021-08-04] MEDS: BLOOD SUGAR DIAGNOSTIC STRIP TEST SCH ×5 (05:16→23:13)
[2021-08-04 05:54] LABS: HEMATOCRIT. 35.9 % (36.0-48.0); HEMOGLOBIN. 11.7 g/dL (12.0-16.0); MEAN CORPUSCULAR HEMOGLOBIN 26.7 pg (28.0-32.0); MEAN CORPUSCULAR VOLUME 81.9 fL (81.0-99.0); RED BLOOD CELL COUNT 4.38 mill/uL (4.2-5.4); RED CELL DISTRIBUTION WIDTH 17.9 % (11.6-14.6)
[2021-08-04] MEDS: DILTIAZEM HCL 125 MG in DEXT 5% WATER 100 ML IV PRN (06:17)
[2021-08-04] MEDS: CALCIUM ACETATE 667MG CAPSULE PO SCH ×3 (08:20→17:46)
[2021-08-04] MEDS: PANTOPRAZOLE SODIUM 40 MG/VIAL IV SCH ×2 (09:00→16:56)
[2021-08-04] MEDS: METOPROLOL TARTRATE 50MG TABLET PO SCH (09:00)
[2021-08-04 11:22] LABS: PLATELET 77 x1000/uL (130-400)
[2021-08-04 11:26] LABS: PLATELET ESTIMATE DECREASED
[2021-08-04] MEDS: ENOXAPARIN 30MG/0.3ML SYR SUBCUT SCH (11:36)
[2021-08-04] MEDS: CLONIDINE 0.1MG TABLET PO SCH ×2 (11:45→21:06)
[2021-08-04] MEDS: DILTIAZEM HCL 60MG TABLET PO SCH ×2 (14:35→21:05)
[2021-08-04] MEDS ORDERED: METHYLPREDNISOLONE SOD SUCC 40 MG/ML VIAL IV SCH (18:00)
[2021-08-04] MEDS ORDERED: DIGOXIN 125MCG TABLET PO SCH (18:00)
[2021-08-04] MEDS: ATORVASTATIN CALCIUM 40MG TABLET PO SCH (21:05)
[2021-08-04] MEDS: METOPROLOL TARTRATE 100MG TABLET PO SCH (21:06)
[2021-08-05] VITALS (34 sets, daily range): BP systolic 119–167; BP diastolic 54–111
[2021-08-05] MEDS: IPRATROPIUM/ALBUTEROL 0.5-3(2.5)MG/3ML NEB HHN SCH ×4 (00:58→20:19)
[2021-08-05 05:24] LABS: CLARITY URINE CLEAR (CLEAR); COLOR URINE YELLOW (YELLOW); KETONES URINE NEGATIVE (NEGATIVE); LEUKOCYTE ESTERASE URINE TRACE (NEGATIVE); NITRITE URINE NEGATIVE (NEGATIVE); OCCULT BLOOD URINE TRACE (NEGATIVE); PH URINE 5.5 (4.5-8.0); PROTEIN URINE 3+ (NEGATIVE); SPECIFIC GRAVITY URINE 1.013 (1.005-1.030); UROBILINOGEN URINE 0.2 E.U./dL (0.2-1.0)
[2021-08-05] MEDS: DILTIAZEM HCL 60MG TABLET PO SCH (06:01)
[2021-08-05] MEDS: BLOOD SUGAR DIAGNOSTIC STRIP TEST SCH ×4 (06:01→23:32)
[2021-08-05] MEDS: HYDRALAZINE HCL 50MG TABLET PO SCH ×3 (06:01→22:00)
[2021-08-05] MEDS: INSULIN LISPRO 100 UNITS/ML SUBCUT SCH ×4 (06:02→23:33)
[2021-08-05 06:13] LABS: HEMATOCRIT. 35.9 % (36.0-48.0); HEMOGLOBIN. 11.7 g/dL (12.0-16.0); MEAN CORPUSCULAR HEMOGLOBIN 26.7 pg (28.0-32.0); MEAN CORPUSCULAR VOLUME 81.5 fL (81.0-99.0); MEAN PLATELET VOLUME 10.5 fl (7.4-10.4); PLATELET 74 x1000/uL (130-400); RED CELL DISTRIBUTION WIDTH 18.2 % (11.6-14.6)
[2021-08-05 06:51] LABS: DIGOXIN 1.3 ng/mL (0.9-2.0)
[2021-08-05] MEDS: CALCIUM ACETATE 667MG CAPSULE PO SCH ×3 (08:20→18:20)
[2021-08-05] MEDS ORDERED: PREDNISONE 20MG TABLET PO SCH (09:00)
[2021-08-05] MEDS: METOPROLOL TARTRATE 100MG TABLET PO SCH ×2 (09:49→20:05)
[2021-08-05] MEDS: CLONIDINE 0.1MG TABLET PO SCH ×2 (09:49→20:05)
[2021-08-05] MEDS: PANTOPRAZOLE SODIUM 40 MG/VIAL IV SCH ×2 (09:50→17:00)
[2021-08-05] MEDS: ENOXAPARIN 30MG/0.3ML SYR SUBCUT SCH (11:00)
[2021-08-05] MEDS: DILTIAZEM HCL 90MG TABLET PO SCH ×2 (12:00→18:00)
[2021-08-05 15:58] LABS: PLATELET ESTIMATE DECREASED
[2021-08-05] MEDS ORDERED: IOHEXOL-300 100 ML BOTTLE ONE (19:28)
[2021-08-05] MEDS: ATORVASTATIN CALCIUM 40MG TABLET PO SCH (20:05)
[2021-08-05] MEDS: DILTIAZEM 125MG/125ML PMX 125 ML IV PRN (23:13)
[2021-08-06] VITALS (53 sets, daily range): BP systolic 117–178; BP diastolic 58–120
[2021-08-06] MEDS: IPRATROPIUM/ALBUTEROL 0.5-3(2.5)MG/3ML NEB HHN SCH ×5 (00:17→20:23)
[2021-08-06] MEDS: HYDRALAZINE HCL 50MG TABLET PO SCH ×3 (05:00→22:00)
[2021-08-06] MEDS: BLOOD SUGAR DIAGNOSTIC STRIP TEST SCH ×3 (05:30→17:55)
[2021-08-06] MEDS: INSULIN LISPRO 100 UNITS/ML SUBCUT SCH ×3 (05:31→18:00)
[2021-08-06 08:04] LABS: HEMOGLOBIN. 12.8 g/dL (12.0-16.0); MEAN CORPUSCULAR HEMOGLOBIN 26.8 pg (28.0-32.0); MEAN CORPUSCULAR VOLUME 81.6 fL (81.0-99.0); RED BLOOD CELL COUNT 4.77 mill/uL (4.2-5.4)
[2021-08-06] MEDS: CALCIUM ACETATE 667MG CAPSULE PO SCH ×3 (08:20→17:55)
[2021-08-06 08:54] LABS: MEAN PLATELET VOLUME 10.5 fl (7.4-10.4); PLATELET ESTIMATE DECREASED
[2021-08-06 08:56] LABS: PLATELET 77 x1000/uL (130-400)
[2021-08-06] MEDS: PANTOPRAZOLE SODIUM 40 MG/VIAL IV SCH ×2 (09:00→17:55)
[2021-08-06] MEDS: CLONIDINE 0.1MG TABLET PO SCH ×2 (09:00→20:55)
[2021-08-06] MEDS ORDERED: PREDNISONE 20MG TABLET PO SCH (09:00)
[2021-08-06] MEDS: METOPROLOL TARTRATE 5MG/5ML VIAL IV SCH ×3 (09:45→20:55)
[2021-08-06] MEDS: METHYLPREDNISOLONE SOD SUCC 40 MG/ML VIAL IV SCH ×2 (11:00→20:55)
[2021-08-06] MEDS ORDERED: IOHEXOL-300 100 ML BOTTLE ONE (13:39)
[2021-08-06] MEDS: DILTIAZEM HCL 5MG/ML 5ML VIAL IV PRN (19:25)
[2021-08-06] MEDS: ATORVASTATIN CALCIUM 40MG TABLET PO SCH (20:55)
[2021-08-06] MEDS: DILTIAZEM 125MG/125ML PMX 125 ML IV PRN (21:03)
[2021-08-07] VITALS (35 sets, daily range): BP systolic 101–161; BP diastolic 50–106
[2021-08-07] MEDS: INSULIN LISPRO 100 UNITS/ML SUBCUT SCH ×5 (00:21→23:57)
[2021-08-07] MEDS: BLOOD SUGAR DIAGNOSTIC STRIP TEST SCH ×5 (00:22→23:57)
[2021-08-07] MEDS: IPRATROPIUM/ALBUTEROL 0.5-3(2.5)MG/3ML NEB HHN SCH ×3 (04:00→08:00)
[2021-08-07] MEDS: METOPROLOL TARTRATE 5MG/5ML VIAL IV SCH ×3 (05:13→21:37)
[2021-08-07] MEDS: HYDRALAZINE HCL 50MG TABLET PO SCH ×3 (05:14→21:37)
[2021-08-07] MEDS: DILTIAZEM 125MG/125ML PMX 125 ML IV PRN (05:16)
[2021-08-07] MEDS: CALCIUM ACETATE 667MG CAPSULE PO SCH ×3 (08:20→17:27)
[2021-08-07] MEDS: CLONIDINE 0.1MG TABLET PO SCH ×2 (09:25→21:00)
[2021-08-07] MEDS: PANTOPRAZOLE SODIUM 40 MG/VIAL IV SCH ×2 (09:25→17:26)
[2021-08-07] MEDS: METHYLPREDNISOLONE SOD SUCC 40 MG/ML VIAL IV SCH ×2 (09:25→21:32)
[2021-08-07] MEDS ORDERED: CLONIDINE HCL 0.1MG/24HR PATCH TD SCH (11:00)
[2021-08-07 11:01] LABS: HEMATOCRIT. 39.1 % (36.0-48.0); HEMOGLOBIN. 12.3 g/dL (12.0-16.0); MEAN CORPUSCULAR HEMOGLOBIN 26.1 pg (28.0-32.0); MEAN CORPUSCULAR VOLUME 82.9 fL (81.0-99.0); MEAN PLATELET VOLUME 11.1 fl (7.4-10.4); PLATELET 75 x1000/uL (130-400); RED BLOOD CELL COUNT 4.71 mill/uL (4.2-5.4)
[2021-08-07 13:45] LABS: PLATELET ESTIMATE DECREASED
[2021-08-07] MEDS: IPRATROPIUM BROMIDE (0.02%) 0.5MG/2.5ML NEB HHN SCH ×2 (14:07→21:29)
[2021-08-07] MEDS: ATORVASTATIN CALCIUM 40MG TABLET PO SCH (21:00)
[2021-08-07] MEDS: DILTIAZEM HCL 125 MG in DEXTROSE 5% WATER 125 ML IV PRN (23:40)
[2021-08-08] VITALS (50 sets, daily range): BP systolic 99–160; BP diastolic 49–85
[2021-08-08] MEDS: IPRATROPIUM BROMIDE (0.02%) 0.5MG/2.5ML NEB HHN SCH ×4 (00:29→20:17)
[2021-08-08] MEDS: HYDRALAZINE HCL 50MG TABLET PO SCH ×3 (05:33→21:26)
[2021-08-08] MEDS: BLOOD SUGAR DIAGNOSTIC STRIP TEST SCH ×3 (05:33→18:50)
[2021-08-08] MEDS: INSULIN LISPRO 100 UNITS/ML SUBCUT SCH ×3 (05:53→18:51)
[2021-08-08] MEDS: METOPROLOL TARTRATE 5MG/5ML VIAL IV SCH ×3 (06:00→21:27)
[2021-08-08 08:05] LABS: HEMATOCRIT. 38.1 % (36.0-48.0); HEMOGLOBIN. 11.4 g/dL (12.0-16.0); MEAN CORPUSCULAR HEMOGLOBIN 24.7 pg (28.0-32.0); MEAN CORPUSCULAR VOLUME 82.4 fL (81.0-99.0); MEAN PLATELET VOLUME 11.1 fl (7.4-10.4); PLATELET 64 x1000/uL (130-400); RED BLOOD CELL COUNT 4.62 mill/uL (4.2-5.4); RED CELL DISTRIBUTION WIDTH 18.7 % (11.6-14.6)
[2021-08-08] MEDS: CALCIUM ACETATE 667MG CAPSULE PO SCH ×3 (08:20→18:50)
[2021-08-08] MEDS: METHYLPREDNISOLONE SOD SUCC 40 MG/ML VIAL IV SCH ×2 (09:00→21:27)
[2021-08-08] MEDS: CLONIDINE 0.1MG TABLET PO SCH ×2 (09:00→21:27)
[2021-08-08] MEDS: PANTOPRAZOLE SODIUM 40 MG/VIAL IV SCH ×2 (09:52→17:49)
[2021-08-08 11:09] LABS: PLATELET ESTIMATE DECREASED
[2021-08-08] MEDS ORDERED: BISACODYL 10MG SUPP PR PRN (13:45)
[2021-08-08] MEDS: IPRATROPIUM/ALBUTEROL 0.5-3(2.5)MG/3ML NEB NEB PRN (20:16)
[2021-08-08] MEDS: ATORVASTATIN CALCIUM 40MG TABLET PO SCH (21:27)
[2021-08-09] VITALS (67 sets, daily range): BP systolic 108–160; BP diastolic 47–110
[2021-08-09] MEDS: BLOOD SUGAR DIAGNOSTIC STRIP TEST SCH ×5 (00:05→23:46)
[2021-08-09] MEDS: INSULIN LISPRO 100 UNITS/ML SUBCUT SCH ×5 (00:53→23:45)
[2021-08-09] MEDS: IPRATROPIUM BROMIDE (0.02%) 0.5MG/2.5ML NEB HHN SCH ×4 (02:37→20:44)
[2021-08-09] MEDS: HYDRALAZINE HCL 50MG TABLET PO SCH ×3 (06:00→22:23)
[2021-08-09] MEDS: METOPROLOL TARTRATE 5MG/5ML VIAL IV SCH ×3 (06:48→22:35)
[2021-08-09] MEDS: CALCIUM ACETATE 667MG CAPSULE PO SCH ×3 (08:20→18:43)
[2021-08-09] MEDS: CLONIDINE 0.1MG TABLET PO SCH ×2 (09:00→21:19)
[2021-08-09] MEDS: PANTOPRAZOLE SODIUM 40 MG/VIAL IV SCH ×2 (09:00→17:00)
[2021-08-09] MEDS: METHYLPREDNISOLONE SOD SUCC 40 MG/ML VIAL IV SCH ×2 (09:00→21:18)
[2021-08-09] MEDS: DILTIAZEM HCL 125 MG in DEXTROSE 5% WATER 125 ML IV PRN (09:46)
[2021-08-09] MEDS: DILTIAZEM HCL 90MG TABLET PO SCH ×3 (12:00→23:46)
[2021-08-09] MEDS: METOPROLOL TARTRATE 100MG TABLET PO SCH ×2 (14:17→21:18)
[2021-08-09] MEDS: METOCLOPRAMIDE HCL 10MG/2ML VIAL IV SCH ×2 (18:41→23:46)
[2021-08-09] MEDS: ATORVASTATIN CALCIUM 40MG TABLET PO SCH (21:18)
[2021-08-10] VITALS (54 sets, daily range): BP systolic 100–167; BP diastolic 45–73
[2021-08-10] MEDS: IPRATROPIUM BROMIDE (0.02%) 0.5MG/2.5ML NEB HHN SCH ×3 (00:54→12:58)
[2021-08-10] MEDS: METOCLOPRAMIDE HCL 10MG/2ML VIAL IV SCH ×3 (05:53→17:33)
[2021-08-10] MEDS: HYDRALAZINE HCL 50MG TABLET PO SCH ×3 (05:53→22:40)
[2021-08-10] MEDS: BLOOD SUGAR DIAGNOSTIC STRIP TEST SCH ×3 (05:54→17:23)
[2021-08-10] MEDS: DILTIAZEM HCL 90MG TABLET PO SCH ×3 (05:54→17:55)
[2021-08-10] MEDS: METOPROLOL TARTRATE 5MG/5ML VIAL IV SCH ×3 (05:55→22:41)
[2021-08-10 06:29] LABS: HEMATOCRIT. 37.8 % (36.0-48.0); MEAN CORPUSCULAR HEMOGLOBIN 26.2 pg (28.0-32.0); MEAN CORPUSCULAR VOLUME 82.5 fL (81.0-99.0); MEAN PLATELET VOLUME 10.7 fl (7.4-10.4); PLATELET 61 x1000/uL (130-400); RED BLOOD CELL COUNT 4.58 mill/uL (4.2-5.4); RED CELL DISTRIBUTION WIDTH 18.7 % (11.6-14.6)
[2021-08-10] MEDS: INSULIN LISPRO 100 UNITS/ML SUBCUT SCH ×3 (06:33→17:34)
[2021-08-10] MEDS: CLONIDINE 0.1MG TABLET PO SCH (08:23)
[2021-08-10] MEDS: CALCIUM ACETATE 667MG CAPSULE PO SCH ×3 (08:23→17:33)
[2021-08-10] MEDS: PANTOPRAZOLE SODIUM 40 MG/VIAL IV SCH ×2 (08:23→17:33)
[2021-08-10] MEDS: METHYLPREDNISOLONE SOD SUCC 40 MG/ML VIAL IV SCH ×2 (08:23→21:38)
[2021-08-10] MEDS ORDERED: METOPROLOL TARTRATE 50MG TABLET PO SCH (09:00)
[2021-08-10] MEDS ORDERED: DEXT 5%/0.45% NACL 1000ML 1,000 ML IV SCH (12:00)
[2021-08-10 13:16] LABS: PLATELET ESTIMATE DECREASED
[2021-08-10] MEDS: ATORVASTATIN CALCIUM 40MG TABLET PO SCH (21:38)
[2021-08-11] VITALS (23 sets, daily range): BP systolic 39–130; BP diastolic 14–103
[2021-08-11] MEDS: IPRATROPIUM BROMIDE (0.02%) 0.5MG/2.5ML NEB HHN SCH ×3 (00:24→09:19)
[2021-08-11] MEDS: BLOOD SUGAR DIAGNOSTIC STRIP TEST SCH ×3 (00:25→12:25)
[2021-08-11] MEDS: METOCLOPRAMIDE HCL 10MG/2ML VIAL IV SCH ×3 (00:26→12:00)
[2021-08-11] MEDS: INSULIN LISPRO 100 UNITS/ML SUBCUT SCH ×3 (00:28→12:00)
[2021-08-11] MEDS ORDERED: DOPAMINE 800MG PREMIX (DOUBLE) 250 ML IV PRN (03:15)
[2021-08-11 05:06] LABS: BG BASE EXCESS -20.9 mmol/L (-2.0-2.0); BG CARBOXYHEMOGLOBIN 0.3 % (0.5-1.5); BG DEOXYHEMOGLOBIN 4.7 % (0.0-5.0); BG FRACTION INSPIRED OXYGEN 100; BG HCO3 ACT 7.7 mmol/L (22.0-26.0); BG METHEMOGLOBIN 0.5 % (0.0-1.5); BG OXYGEN SATURATION 95.3 % (92.0-98.5); BG OXYHEMOGLOBIN 94.5 % (94.0-97.0); BG PCO2 26.5 mmHg (35.0-45.0); BG PH 7.079 (7.350-7.450); BG PO2 111.3 mmHg (75.0-100.0); BG SAMPLE SITE RIGHT BRACHIAL; BG TOTAL HEMOGLOBIN 11.5 g/dL (12.0-18.0); BG TOTAL RESPIRATORY RATE 26 b/min; BG VENT MODE VENT - AC
[2021-08-11] MEDS ORDERED: SODIUM CHLORIDE 0.9% 500 ML IV ONE (05:15)
[2021-08-11] MEDS ORDERED: SODIUM BICARBONATE 8.4% 1 MEQ/ML 50ML SYR IV SCH (05:30)
[2021-08-11] MEDS: PHENYLEPHRINE 100 MG in DEXT 5% WATER 240 ML IV PRN ×2 (05:41→10:27)
[2021-08-11] MEDS: NOREPINEPHRINE 32 MG in DEXT 5% WATER 218 ML IV PRN ×2 (05:42→10:26)
[2021-08-11] MEDS ORDERED: SODIUM CHLORIDE 0.9% 1,000 ML IV SCH (05:45)
[2021-08-11] MEDS: HYDRALAZINE HCL 50MG TABLET PO SCH (06:00)
[2021-08-11] MEDS ORDERED: SODIUM BICARBONATE 100 MEQ in DEXTROSE 5% WATER 1,000 ML IV SCH (06:00)
[2021-08-11] MEDS: DILTIAZEM HCL 90MG TABLET PO SCH ×2 (06:00)
[2021-08-11 06:10] LABS: HEMATOCRIT. 32.9 % (36.0-48.0); MEAN CORPUSCULAR HEMOGLOBIN 26.6 pg (28.0-32.0); MEAN CORPUSCULAR VOLUME 87.3 fL (81.0-99.0); RED BLOOD CELL COUNT 3.77 mill/uL (4.2-5.4); RED CELL DISTRIBUTION WIDTH 18.9 % (11.6-14.6)
[2021-08-11] MEDS ORDERED: SODIUM CHLORIDE 0.9% 500 ML IV NR (06:15)
[2021-08-11] MEDS: VASOPRESSIN 20 UNIT in SODIUM CHLORIDE 0.9% 99 ML IV PRN ×2 (06:24→10:27)
[2021-08-11] MEDS: METOPROLOL TARTRATE 5MG/5ML VIAL IV SCH (06:39)
[2021-08-11] MEDS ORDERED: SODIUM BICARBONATE 8.4% 1 MEQ/ML 50ML SYR IV NR ×2 (08:15→12:15)
[2021-08-11] MEDS: CALCIUM ACETATE 667MG CAPSULE PO SCH ×3 (08:20→12:26)
[2021-08-11] MEDS: METHYLPREDNISOLONE SOD SUCC 40 MG/ML VIAL IV SCH (08:26)
[2021-08-11] MEDS: PANTOPRAZOLE SODIUM 40 MG/VIAL IV SCH (08:26)
[2021-08-11] MEDS ORDERED: SODIUM BICARBONATE 8.4% 1 MEQ/ML 50ML SYR IV ONE (09:53)
[2021-08-11] MEDS ORDERED: EPINEPHRINE 0.1MG/ML (1:10,000) 10ML SYR ONE (09:53)
[2021-08-11] MEDS ORDERED: SODIUM BICARBONATE 150 MEQ in DEXTROSE 5% WATER 1,000 ML IV SCH (10:00)
[2021-08-11 10:50] LABS: CHLORIDE 106 mEq/L (98-107)
[2021-08-11 10:55] LABS: HEMOGLOBIN. 8.4 g/dL (12.0-16.0); MEAN CORPUSCULAR HEMOGLOBIN 27.6 pg (28.0-32.0); MEAN CORPUSCULAR VOLUME 91.6 fL (81.0-99.0); MEAN PLATELET VOLUME 9.7 fl (7.4-10.4); RED BLOOD CELL COUNT 3.05 mill/uL (4.2-5.4); RED CELL DISTRIBUTION WIDTH 18.3 % (11.6-14.6)
[2021-08-11 11:02] LABS: BG BASE EXCESS -20.8 mmol/L (-2.0-2.0); BG DEOXYHEMOGLOBIN 14.4 % (0.0-5.0); BG FRACTION INSPIRED OXYGEN 100; BG HCO3 ACT 7.6 mmol/L (22.0-26.0); BG METHEMOGLOBIN 1.2 % (0.0-1.5); BG OXYGEN SATURATION 85.4 % (92.0-98.5); BG OXYHEMOGLOBIN 84.4 % (94.0-97.0); BG PCO2 27.1 mmHg (35.0-45.0); BG PEEP (cmH2O) 0 cmH2O; BG PH 7.068 (7.350-7.450); BG PO2 74.9 mmHg (75.0-100.0); BG SAMPLE SITE RIGHT RADIAL; BG TOTAL HEMOGLOBIN 6.9 g/dL (12.0-18.0); BG VENT MODE VENT - AC/VC
[2021-08-11 11:07] LABS: CREATINE KINASE MB FRACTION 28.2 ng/mL (0.5-3.6)
[2021-08-11 11:46] LABS: PLATELET 21 x1000/uL (130-400)
[2021-08-11] MEDS ORDERED: DILTIAZEM HCL 60MG TABLET PO SCH (12:00)
[2021-08-11] MEDS ORDERED: EPINEPHRINE 10 MG in SODIUM CHLORIDE 0.9% 240 ML IV PRN (12:15)
[2021-08-11 17:04] LABS: NUCLEATED RED BLOOD CELLS 18 /100 WBC
[2021-08-11 17:05] LABS: PLATELET ESTIMATE MARKEDLY DECREASED
[2021-08-11 18:12] LABS: NUCLEATED RED BLOOD CELLS 9 /100 WBC; PLATELET ESTIMATE MARKEDLY DECREASED
[2021-08-11 18:16] LABS: PLATELET 44 x1000/uL (130-400)
== END 2021-08-11 13:39 | DRG 208 ==
LOC: ER 13:56 → EDBEDREQTM 17:14 → EDBEDREQ 20:20 → ENRESERV 07-24 15:41 → 5WST 07-24 17:56 → EDBEDREQ 07-24 17:59 → EDBEDREQTM 07-24 17:59 → 8WST 07-25 11:53 → CVICU 08-03 13:19 → 3WST 08-10 12:51 → CVICU 08-11 04:17
PROVIDERS: ADMIT Internal Medicine Nephrology; ATTEND Internal Medicine Nephrology
PROC: 30233N1 Transfusion of Nonautologous Red Blood Cells into Peripheral Vein, Percutaneous Approach (ICD-10-PCS; principal; 2021-07-23)
PROC: 5A09357 Assistance with Respiratory Ventilation, Less than 24 Consecutive Hours, Continuous Positive Airway Pressure (ICD-10-PCS; 2021-07-24)
PROC: 02HV33Z Insertion of Infusion Device into Superior Vena Cava, Percutaneous Approach (ICD-10-PCS; 2021-07-27)
PROC: B518ZZA Fluoroscopy of Superior Vena Cava, Guidance (ICD-10-PCS; 2021-07-27)
PROC: B548ZZA Ultrasonography of Superior Vena Cava, Guidance (ICD-10-PCS; 2021-07-27)
PROC: 5A1D70Z Performance of Urinary Filtration, Intermittent, Less than 6 Hours Per Day (ICD-10-PCS; 2021-07-27)
PROC: 5A1D70Z Performance of Urinary Filtration, Intermittent, Less than 6 Hours Per Day (ICD-10-PCS; 2021-07-30)
PROC: 5A09357 Assistance with Respiratory Ventilation, Less than 24 Consecutive Hours, Continuous Positive Airway Pressure (ICD-10-PCS; 2021-07-30)
PROC: 5A09457 Assistance with Respiratory Ventilation, 24-96 Consecutive Hours, Continuous Positive Airway Pressure (ICD-10-PCS; 2021-07-31)
PROC: 5A1D70Z Performance of Urinary Filtration, Intermittent, Less than 6 Hours Per Day (ICD-10-PCS; 2021-08-01)
PROC: 5A1D70Z Performance of Urinary Filtration, Intermittent, Less than 6 Hours Per Day (ICD-10-PCS; 2021-08-03)
PROC: 5A1D70Z Performance of Urinary Filtration, Intermittent, Less than 6 Hours Per Day (ICD-10-PCS; 2021-08-05)
PROC: 5A1D70Z Performance of Urinary Filtration, Intermittent, Less than 6 Hours Per Day (ICD-10-PCS; 2021-08-07)
PROC: 5A1D70Z Performance of Urinary Filtration, Intermittent, Less than 6 Hours Per Day (ICD-10-PCS; 2021-08-09)
PROC: 5A1D70Z Performance of Urinary Filtration, Intermittent, Less than 6 Hours Per Day (ICD-10-PCS; 2021-08-10)
PROC: 5A1935Z Respiratory Ventilation, Less than 24 Consecutive Hours (ICD-10-PCS; 2021-08-11)
PROC: 5A12012 Performance of Cardiac Output, Single, Manual (ICD-10-PCS; 2021-08-11)
PROC: 0BH17EZ Insertion of Endotracheal Airway into Trachea, Via Natural or Artificial Opening (ICD-10-PCS; 2021-08-11)
DX: J96.21 Acute and chronic respiratory failure with hypoxia (principal); I26.99 Other pulmonary embolism without acute cor pulmonale; I50.33 Acute on chronic diastolic (congestive) heart failure; N18.6 End stage renal disease; K27.4 Chronic or unspecified peptic ulcer, site unspecified, with hemorrhage; I13.2 Hypertensive heart and chronic kidney disease with heart failure and with stage 5 chronic kidney disease, or end stage renal disease; N17.9 Acute kidney failure, unspecified; K92.0 Hematemesis; D68.9 Coagulation defect, unspecified; I69.354 Hemiplegia and hemiparesis following cerebral infarction affecting left non-dominant side; J45.901 Unspecified asthma with (acute) exacerbation; I48.92 Unspecified atrial flutter; T78.3XXA Angioneurotic edema, initial encounter; E11.22 Type 2 diabetes mellitus with diabetic chronic kidney disease; E78.5 Hyperlipidemia, unspecified; M10.9 Gout, unspecified; I48.0 Paroxysmal atrial fibrillation; E78.00 Pure hypercholesterolemia, unspecified; Z66 Do not resuscitate; M19.90 Unspecified osteoarthritis, unspecified site; R00.0 Tachycardia, unspecified; D69.6 Thrombocytopenia, unspecified; D72.829 Elevated white blood cell count, unspecified; E04.2 Nontoxic multinodular goiter; Z20.822 Contact with and (suspected) exposure to COVID-19; I46.9 Cardiac arrest, cause unspecified; R13.12 Dysphagia, oropharyngeal phase; I69.320 Aphasia following cerebral infarction; Z85.038 Personal history of other malignant neoplasm of large intestine; Z90.49 Acquired absence of other specified parts of digestive tract; Z79.01 Long term (current) use of anticoagulants; Z79.899 Other long term (current) drug therapy; D50.0 Iron deficiency anemia secondary to blood loss (chronic)
CPT/HCPCS: 36415; 36556; 36600; 70491; 71045; 76536; 76937; 77001; 80048; 80053; 80061; 80162; 81003; 82375; 82553; 82607; 82728; 82746; 82805; 82962; 83036; 83540; 83550; 83735; 83880; 83970; 84100; 84145; 84443; 84484; 85025; 85044; 85379; 86705; 86706; 86709; 86803; 86850; 86900; 86920; 87340; 87426; 87635; 92610; 92950; 93005; 93306; 94002; 94003; 94640; 94660; 99291; C1752; C1887; C9113; J0885; J1160; J1265; J1644; J1650; J1815; J2370; J2765; J2920; J3430; J3490; J7030; J7040; J7050; J7060; J7070; J7512; L8514; P9016; Q9967